=== PATIENT | male | born 1995 ===

== ENCOUNTER 2017-02-09 11:52 | Emergency (ER) | payer OTHER ==
[2017-02-09 12:08] VITALS: BP 122/72; PULSE 80; RESP 20; TEMP 98.8; O2SAT 100
[2017-02-09] MEDS ORDERED: TDAP Vaccine 0.5 mL Syr IM ONE (12:20)
--- NOTE | 2017-02-09 12:30 | ED PDOC ---
HPI: General Adult Time Seen by Provider: 02/09/17 12:03 Chief Complaint (Nursing): Headache Chief Complaint (Provider): Head injury History Per: Patient Additional Complaint(s): Pt. states on Monday at 1000 he attempted to mount a television on the wall which accidentally fell on his head causing a laceration on his forehead. Pt. states he did not lose consciousness but did feel "dazed" afterwards. States he' s been getting intermittent headaches since then which are localized to the laceration site and occur every 3 hours. Also reports that laceration has been oozing blood. Denies LOC, N/V, previous TBI, hx of seizures, anticoagulant use, neck pain, other injury. Past Medical History Reviewed: Historical Data, Nursing Documentation, Vital Signs Vital Signs: Last Vital Signs Temp 98.8 F 02/09/17 12:05 Pulse 80 02/09/17 12:05 Resp 20 02/09/17 12:05 BP 122/72 02/09/17 12:05 Pulse Ox 100 02/09/17 12:35 - Family History Family History: States: No Known Family Hx - Immunization History Hx Tetanus Toxoid Vaccination: No - Allergies Allergies/Adverse Reactions: Allergies Allergy/AdvReac Type Severity Reaction Status Date / Time No Known Allergies Allergy Verified 02/09/17 12:07 Review of Systems ROS Statement: Except As Marked, All Systems Reviewed And Found Negative Neurological: Positive for: Headache Physical Exam - Physical Exam Appears: Positive for: Well, Non-toxic, No Acute Distress Head Exam: Negative for: ATRAUMATIC (approximatley 1cm stellate shaped laceration on mid forehead with mild surrounding swelling but no erythema or crepitus), NORMAL INSPECTION, NORMOCEPHALIC Skin: Positive for: Normal Color, Warm, DRY Eye Exam: Positive for: EOMI, Normal appearance, PERRL ENT: Positive for: Normal ENT Inspection, TM Is/Are (WNL b/l without hemotympanum) Neck: Positive for: Normal, Painless ROM Cardiovascular/Chest: Positive for: Regular Rate, Rhythm Respiratory: Positive for: CNT, Normal Breath Sounds Gastrointestinal/Abdominal: Positive for: Normal Exam, Soft. Negative for: Tenderness Back: Positive for: Normal Inspection. Negative for: L CVA Tenderness, R CVA Tenderness, Vertebral Tenderness Extremity: Positive for: Normal ROM Neurologic/Psych: Positive for: Alert, pilot supervisor II-XII (grossly intact), Oriented, Gait (steady and unassisted). Negative for: Motor/Sensory Deficits, Aphasia, Facial Droop - ECG O2 Sat by Pulse Oximetry: 100 - Progress ED Course And Treament: CT head w/o contrast ordered. Tetanus prophylaxis administered. Pt. was offered pain meds but refused. Pt. infomed that he should take Tylenol instead of Advil at home. CT head w/o contrast: negative. Disposition - Clinical Impression Clinical Impression: Head injury, Forehead laceration - Patient ED Disposition Is Patient to be Admitted: No - Disposition Referrals: [facility] [Outside] Disposition: Routine/Home Disposition Time: 15:55 Condition: STABLE Additional Instructions: Keep wound covered, clean, and dry. Follow up with [facility] in 2 days for further evaluation. Instructions: Head Injury (ED), Laceration Without Closure (ED) Print Language: BOLIVIAN
--- NOTE | 2017-02-09 15:48 | CT ---
PROCEDURE: CT HEAD WITHOUT CONTRAST. HISTORY: Trauma COMPARISON: None available. TECHNIQUE: Axial computed tomography images were obtained through the head/brain without intravenous contrast. Radiation dose: Total exam DLP = 821.03 mGy-cm. This CT exam was performed using one or more of the following dose reduction techniques: Automated exposure control, adjustment of the mA and/or kV according to patient size, and/or use of iterative reconstruction technique. FINDINGS: HEMORRHAGE: No intracranial hemorrhage. BRAIN: Low-white matter differentiation is preserved. There is no mass, mass effect or abnormal extra-axial fluid collection. VENTRICLES: The ventricles are normal in size, shape and configuration. CALVARIUM: There is no calvarial fracture or extracranial soft tissue swelling. PARANASAL SINUSES: Predominantly clear. MASTOID AIR CELLS: Predominantly clear. OTHER FINDINGS: None. IMPRESSION: No acute intracranial abnormality.
== END 2017-02-09 16:07 | disposition home or self-care (01) ==
LOC: H.ER 11:52
DX: S01.81XA Laceration without foreign body of other part of head, initial encounter (principal); S09.90XA Unspecified injury of head, initial encounter; W22.8XXA Striking against or struck by other objects, initial encounter; Y92.008 Other place in unspecified non-institutional (private) residence as the place of occurrence of the external cause